=== PATIENT | female | born 1950 | race Caucasian/White ===

== ENCOUNTER → 2017-12-17 | Outpatient (CLI) | payer MEDICARE, OTHER | LOC: M.RAD 12:14 | DX: M25.552 Pain in left hip (principal); R10.2 Pelvic and perineal pain ==

== ENCOUNTER 2018-06-18 11:52 | Emergency (ER) | payer MEDICARE, OTHER ==
[~2018-06-18] VITALS: Ht 162.6 cm; Wt 117.9 kg
[2018-06-18] MEDS ORDERED: ACCUPRIL5 MG PO (12:29)
[2018-06-18] MEDS ORDERED: JARDIANCE10 MG PO (12:29)
[2018-06-18] MEDS ORDERED: LANTUS SUBQ (12:30)
[2018-06-18] MEDS ORDERED: ACETAMINOPHEN-1 EAC1 PO (12:30)
[2018-06-18] MEDS ORDERED: ASPIR 8181 MG PO (12:30)
[2018-06-18] MEDS ORDERED: TYLENOL EXTRA500 MG PO (12:33)
[2018-06-18] MEDS ORDERED: NORCO 5-325 TA1 EACH PO (14:38)
[2018-06-18 15:08] VITALS: BP 122/77
[2018-06-22] MEDS ORDERED: CENTRUM SILVER1 EAC4 PO (14:03)
[2018-06-22] MEDS ORDERED: PREVACID15 MG PO (14:03)
== END 2018-06-18 15:09 | disposition home or self-care (01) ==
LOC: M.ERS 11:52
DX: S82.032A Displaced transverse fracture of left patella, initial encounter for closed fracture (principal); E11.9 Type 2 diabetes mellitus without complications; I10 Essential (primary) hypertension; Z90.710 Acquired absence of both cervix and uterus; Z90.49 Acquired absence of other specified parts of digestive tract; Z79.4 Long term (current) use of insulin; W00.0XXA Fall on same level due to ice and snow, initial encounter; Y92.89 Other specified places as the place of occurrence of the external cause; Y93.89 Activity, other specified; Y99.8 Other external cause status

== ENCOUNTER → 2018-06-22 | Outpatient (CLI) | payer MEDICARE, OTHER ==
[~2018-06-22] MED LIST: ACCUPRIL5 MG PO; ACETAMINOPHEN-1 EAC1 PO; ASPIR 8181 MG PO; CENTRUM SILVER1 EAC4 PO; JARDIANCE10 MG PO; LANTUS SUBQ; NORCO 5-325 TA1 EACH PO; PREVACID15 MG PO; TYLENOL EXTRA500 MG PO
--- NOTE | ~2018-06-22 | EKG ---
[place] [address] ELECTROCARDIOGRAM REPORT Name: ARTHUR ACHARYA Room: [facility]#: [id number] Admission: 06/22/18 Attend Phys: Chaz Sutton DO Discharge: Date of : 52 Report #: [id number] THIS REPORT FOR: //name// [facility] Test Date: 2018-06-22 Test Time: 11:10:48 Pat Name: ARTHUR CISNEROSNATASHAMARY Department: Room: Gender: F [employer]: : 1950 Requested By: Chaz Sutton Order Number: [id number] Reading MD: Measurements Intervals [place] Rate: 79 P: 72 ND: 152 QRS: 60 QRSD: 76 T: 42 QT: 354 QTc: 406 Interpretive Statements Sinus rhythm No previous ECG available for comparison [email or web address] By: 09 111 Keyurany MD Mack /EPI
== END ==
LOC: M.RAD 10:41
DX: Z01.810 Encounter for preprocedural cardiovascular examination (principal)

== ENCOUNTER 2019-03-11 11:47 | Emergency (ER) | payer OTHER, MEDICARE ==
[~2019-03-11] VITALS: Ht 162.6 cm; Wt 90.7 kg
[2019-03-11] MEDS ORDERED: NEURONTIN 300300 M1 PO (11:52)
[2019-03-11] MEDS ORDERED: NORCO 5-325 TA1 EAC1 PO (13:44)
[2019-03-11 14:12] VITALS: BP 147/69
== END 2019-03-11 14:15 | disposition home or self-care (01) ==
LOC: M.ERS 11:47
DX: S86.812A Strain of other muscle(s) and tendon(s) at lower leg level, left leg, initial encounter (principal); E11.9 Type 2 diabetes mellitus without complications; I10 Essential (primary) hypertension; Z90.710 Acquired absence of both cervix and uterus; Z90.49 Acquired absence of other specified parts of digestive tract; Z91.041 Radiographic dye allergy status; W01.0XXA Fall on same level from slipping, tripping and stumbling without subsequent striking against object, initial encounter; Y93.89 Activity, other specified; Y92.89 Other specified places as the place of occurrence of the external cause; Y99.8 Other external cause status